=== PATIENT | male | born 1945 | race Caucasian/White ===

== ENCOUNTER → 2022-04-23 | Outpatient (CLI) | payer MEDICARE ==
[~2022-04-23] MED LIST: TIXAGEVIMAB/CILGAVIMAB (EUA) 300 MG/3 ML COMBO.PKG IM NR; TIXAGEVIMAB/CILGAVIMAB (EUA) 300 MG/3 ML COMBO.PKG IM ONE
[2022-04-23 13:27] VITALS: BP 142/62; PULSE 64; RESP 18; TEMP 98.4
== END ==
LOC: PROCWHC3 13:12
PROVIDERS: ATTEND Internal Medicine Hematology & Oncology
DX: Z23 Encounter for immunization (principal); Z92.21 Personal history of antineoplastic chemotherapy
CPT/HCPCS: Q0220; M0220

== ENCOUNTER → 2022-08-18 | Outpatient (CLI) | payer MEDICARE ==
[2022-08-18 11:20] VITALS: BP 134/63; PULSE 69; RESP 18; TEMP 97.8
--- NOTE | 2022-08-18 14:53 | P.PAINPG ---
PQRS Measure Charge Sheet Comment: A 77 yr old male with a history of severe and chronic headache and neck pain secondary to cervical degenerative disc diseases and cervicogenic headache/ occipital neuralgia presents today for evaluation s/p L ERIKA injection. Pt states he experienced 30% pain relief x/p procedure. Pain level is currently at 8/10 in intensity, constant, localized in mid L cervical spine, deep/burning in character w shooting towards L eye. Pain is provoked by any lateral flexion or flexion. Pain is alleviated with PT while inpatient in Jun 2022, acupuncture x 2, heat, ice, medications (OTC meds), topicals, repositioning and rest. Interventional pain procedures completed include L ERIKA injection Patient is currently on OTC meds Patient denies any side effects of the medication(s), denies excessive drowsiness or sleepiness, denies suicidal ideation and reports that the current pain medication is helping to control the pain and improve activities of daily living. Patient denies any motor or sensory deficits. Patient denies any fever or night sweats, denies any change in the bowel movements or urination. Physical Examination: -Constitutional: Cooperative. Not in acute distress . - Neurologic: Cranial nerve II to XII intact. No focal neurological deficits. - Psychatric: Alert & oriented x 3. Matching mood & appropriate affect. Judgment and insight intact. - Musculoskeletal: Cervical spine: Muscle bulk/ tone/ strength in the bilateral upper extremities normal Vertebral body tenderness to palpation over Spurling test positive Distraction test positive Facet loading test positive w accompanying paraspinal TTP over L C2-C3, C3-C4 Thoracic spine Muscle bulk / tone/ strength in the bilateral paraspinal muscles normal Vertebral body tender to palpation over Facet loading test positive Lumbar spine: Motor bulk/ tone/ strength lower extremities , thigh and legs : 5/5 Deep tendon reflexes : Normal Knee Jerk. Normal Ankle Jerk . Vertebral body tenderness to palpation over Lumbar Facet Loading Test positive Straight Leg Raise: positive at 30 degrees right side/ left side Gaenslen's Test positive Sacral spine : Severe tenderness over the Sacroiliac joint: right side / left side Range of motion: Flexion of the lumbar spine <60 degrees Range of motion: Extension of the lumbar spine <20 degrees Gaenslen's Test positive Adan's Test positive Jeni test: positive right side / left side Thigh Thrust Test Sacral Thrust Test Assessment and plan: Chronic neck pain and headaches secondary to cervicogenic headache, occipital neuralgia Recommendation of L C2-C3, C3-C4 injection #1. May need a series, up until RFA, for optimal pain relief. Risks, benefits of procedure discussed and pt verbalized understanding. Admits to anticoagulant use or medical history of diabetes. Protocol for discontinuation/ continuation of meds buster procedure discussed. All patient questions answered I have spent less than 30 minutes on patient care today. Dr Carirngton was available by phone for the evaluation of this patient. The time was used to review the medical records including relevant urine studies and Prescription history (MAPs), review of the available imaging, evaluation and examination of the patient, coordination of care with the medical staff and if applicable referring physicians, as well as creation of the medical record Home Medications: Ambulatory Orders Aspirin [Children's Aspirin] 81 mg PO DAILY 04/23/22 DULoxetine HCL [Cymbalta] 30 mg PO DAILY 04/23/22 Levothyroxine Sodium [Synthroid] 50 mcg PO DAILY 04/23/22 allopurinoL [Zyloprim] 300 mg PO DAILY 04/23/22 Acyclovir [Zovirax] 400 mg PO BID 07/06/22 Tamsulosin HCl [Flomax] 0.8 mg PO HS 07/06/22 Isosorbide Mononitrate ER [Imdur] 30 mg PO DAILY 30 Days #30 tab 07/10/22 Pregabalin [Lyrica] 75 mg PO TID 3 Days #9 cap 07/10/22 Controlled Substance Measures - Controlled Substance Measures Is patient prescribed a controlled substance at discharge?: No
== END ==
LOC: PNWHC3 10:55
PROVIDERS: ATTEND Specialist
DX: M54.81 Occipital neuralgia (principal); G44.86 Cervicogenic headache; G89.29 Other chronic pain
CPT/HCPCS: 99211

== ENCOUNTER → 2022-08-20 | Outpatient (CLI) | payer MEDICARE ==
--- NOTE | 2022-08-21 04:44 | MR ---
EXAMINATION TYPE: MR cervical spine wo con DATE OF EXAM: 08/20/2022 COMPARISON: None HISTORY: Neck pain and headaches for 5 months since having shingles Multiplanar multiecho imaging of the cervical spine performed with no contrast. Normal alignment. There is mild narrowing of disc spaces at C5-6 and C6-7. Cervical spinal cord has n ormal signal pattern. No edema. Brainstem is intact. There is mild cervical hypertrophic facet arthro keanu. No paraspinal mass. No evidence of spinal stenosis. There is right-sided C5-6 uncovertebral sp urring and neural foraminal impingement. IMPRESSION: Mild spondylotic changes. Right sided C5-6 neural foraminal impingement due to disc bulging and uncov ertebral spurring. No spinal stenosis.
== END | disposition home or self-care (01) ==
LOC: RADMRIMAIN 18:05
PROVIDERS: ATTEND Specialist
DX: M50.323 Other cervical disc degeneration at C6-C7 level (principal); M47.812 Spondylosis without myelopathy or radiculopathy, cervical region
CPT/HCPCS: 72141

== ENCOUNTER 2022-09-24 06:46 | Day surgery (SDC) | payer MEDICARE ==
[2022-09-22 09:25] VITALS: BMI 33.9
[2022-09-24 07:13] VITALS: TEMP 97.4
[2022-09-24] MEDS ORDERED: LACTATED RINGERS 1,000 ML IV ONE (07:30)
[2022-09-24] MEDS ORDERED: ROPIVACAINE 5 MG/ML 20 ML AMPULE ONE (07:48)
[2022-09-24] MEDS ORDERED: methylPREDNISolone ACETATE 40 MG/ML 1 ML VIAL ONE (07:48)
[2022-09-24] MEDS ORDERED: MIDAZOLAM 2 MG/2 ML VIAL ONE (07:49)
[2022-09-24] MEDS ORDERED: fentaNYL (PF) 50 MCG/ML 2 ML AMP ONE (07:49)
--- NOTE | 2022-09-24 08:09 | P.PCN ---
Date of Procedure: 09/24/22 Procedure(s) Performed: PREOPERATIVE DIAGNOSIS: 1-Cervical Spondylosis with Facet Arthropathy.without myelopathy. 2-cervical degenerative disc disease POSTOPERATIVE DIAGNOSIS: Same as preoperative diagnosis. PROCEDURES: Diagnostic Left C2 ,C3, C4 medial branch blocks, with fluoroscopic guidance (fluoroscopy images available in radiology department ) ( to target the facet joint at Left C2-3 ,C3-4 ) ANESTHESIA: Monitored anesthesia care as per anesthesia department . EBL: Minimal PROCEDURE INDICATION: The patient with neck pain secondary to cervical arthropathy unresponsive to more conservative treatments. PROCEDURE DESCRIPTION / TECHNIQUE: The patient was seen and identified in the preoperative area. Risks, benefits, complications, and alternatives were discussed with the patient, the patient agreed to proceed with the procedure and signed the consent. IV was started. Vital signs remained stable throughout the procedure. Patient was taken to the OR and time out was completed. The patient was placed in the Lateral position on the procedure table( left side up ). . The cervical area was prepped and draped in the usual sterile fashion. Critical pause was taken. Vital signs were closely monitored during the procedure. Conscious sedation was used during the procedure to decrease patients anxiety. Using cross-table lateral fluoroscopy, the centroid of the trapezoid of Left C2 ,C3, C4 , was identified, marked, and localized with 1% lidocaine 1 ml at each level for skin and Sub Q infiltrations . Subsequently, a 22 G 3 spinal needle was advanced guided by fluoroscopy to the centroid of the trapezoid of Left C2 , C3, C4 , Colton tip position was confirmed at the centroid of the trapezoids of Left C2 ,C3 , C4 with anteroposterior fluoroscopy. Subsequently, 1.5 ml of preservative-free Ropivacaine 0.5% mixed with Depo-Medrol 20 mg and half ml of the mixture was injected after negative aspiration for blood and CSF. Colton was then removed intact . COMPLICATIONS: No acute complications. DISPOSITION / PLANS: The patient was placed in a supine position and transferred to the recovery area in a stable condition for observation and was discharged from the recovery room after meeting discharge criteria. Home discharge instructions given to the patient by the staff. The patient was reexamined prior to discharge. The patient will schedule a follow up in the clinic in 2-4 weeks.
[2022-09-24] MEDS ORDERED: IV FLUID CONTINUATION 800 ML IV ONE (08:11)
[2022-09-24] MEDS ORDERED: LIDOCAINE 1% (10MG/ML) FOR IV START INTRADERMA PRN (08:29)
[2022-09-24] MEDS ORDERED: LACTATED RINGERS 1,000 ML IV SCH (08:29)
--- NOTE | 2022-09-24 08:30 | FL ---
Intraoperative/procedural fluoroscopic services were provided. Total fluoroscopy time is 18 seconds w ith a total of 2 submitted images to PACS. Please see the operative/procedural note for further detai ls.
[2022-09-24 08:36] VITALS: BP 130/59; PULSE 55; RESP 16
== END 2022-09-24 09:02 | disposition home or self-care (01) ==
LOC: ORPAIN 06:46
PROVIDERS: ATTEND Specialist
DX: M47.812 Spondylosis without myelopathy or radiculopathy, cervical region (principal); M50.31 Other cervical disc degeneration, high cervical region; E07.9 Disorder of thyroid, unspecified; F41.9 Anxiety disorder, unspecified; F32.A Depression, unspecified; M10.9 Gout, unspecified; K85.90 Acute pancreatitis without necrosis or infection, unspecified; Z86.718 Personal history of other venous thrombosis and embolism; Z98.84 Bariatric surgery status; Z98.890 Other specified postprocedural states; Z90.89 Acquired absence of other organs; Z79.899 Other long term (current) drug therapy; Z79.890 Hormone replacement therapy
CPT/HCPCS: 64490; 64491; J2250; J1030; J3010; J2795

== ENCOUNTER → 2022-10-04 | Outpatient (CLI) | payer MEDICARE ==
[2022-10-04 08:46] VITALS: BP 133/57; PULSE 59; RESP 18; TEMP 98.1
--- NOTE | 2022-10-04 14:38 | P.PAINPG ---
PQRS Measure Charge Sheet Comment: A 77 yr old male w at side with a history of severe and chronic neck pain secondary to Shingles, cervical DDD and spondylosis with facet arthropathy without myelopathy presents today for evaluation s/p L MBB C2-C3, C3-C4. Pt states he experienced 25 % pain relief x 4 hrs s/p procedure. Pain level is c urrently at 8 /10 in intensity, constant, localized in the L cervical spine, burning in character w shooting towards the L neck and LUE. Pain is provoked by PT. Pain is alleviated with acupuncture in 2021, medications without relief, topicals without relief, +THC edibles, repositioning and rest. Interventional pain procedures completed include L MBB C2-C3, C3-C4 Patient is currently on various meds without relief Patient denies any side effects of the medication(s), denies excessive drowsiness or sleepiness, denies suicidal ideation and reports that the current pain medication is helping to control the pain and improve activities of daily living. Patient denies any motor or sensory deficits. Patient denies any fever or night sweats, denies any change in the bowel movements or urination. Physical Examination: -Constitutional: Cooperative. Not in acute distress . - Neurologic: Cranial nerve II to XII intact. No focal neurological deficits. - Psychatric: Alert & oriented x 3. Matching mood & appropriate affect. Judgment and insight intact. - Musculoskeletal: Cervical spine: TTP over L anteriolateral neck, jaw Muscle bulk/ tone/ strength in the bilateral upper extremities normal Vertebral body tenderness to palpation over Spurling test positive Distraction test positive Facet loading test positive Thoracic spine Muscle bulk / tone/ strength in the bilateral paraspinal muscles normal Vertebral body tender to palpation over Facet loading test positive Lumbar spine: Motor bulk/ tone/ strength lower extremities , thigh and legs : 5/5 Deep tendon reflexes : Normal Knee Jerk. Normal Ankle Jerk . Vertebral body tenderness to palpation over Lumbar Facet Loading Test positive Straight Leg Raise: positive at 30 degrees right side/ left side Gaenslen's Test positive Sacral spine : Severe tenderness over the Sacroiliac joint: right side / left side Range of motion: Flexion of the lumbar spine <60 degrees Range of motion: Extension of the lumbar spine <20 degrees Gaenslen's Test positive Jeni test: positive right side / left side Thigh Thrust Test Sacral Thrust Test Assessment and plan: Chronic BRAUN pain secondary to Cervicogenic BRAUN, cervical degenerative disc disease, spondylosis with facet arthropathy without myelopathy, Shingles Recommendation of Jeffery GAR To schedule w Dr Rodríguez. Risks, benefits of procedure discussed and pt verbalized understanding. Admits anticoagulant use or medical history of diabetes. Protocol for discontinuation / continuation of medications buster procedure discussed. All patient questions answered MAPS reviewed and it was appropriate. Prescription refill for I have spent less than 30 minutes on patient care today. Dr Carrington was available by phone for the evaluation of this patient. The time was used to review the medical records including relevant urine studies and Prescription history (MAPs), review of the available imaging, evaluation and examination of the patient, coordination of care with the medical staff and if applicable referring physicians, as well as creation of the medical record - Pain Location Left Neck Non-Pharmacological Interventions: Home Exercise, Inactivity, Position/Reposition, Relaxation Technique, Stretching Pharmacological Interventions: Block, PRN Medication, Scheduled Medication, Topical Medication PQRS Narrative: Hx Alcohol Use (MH) No Home Medications: Ambulatory Orders Aspirin [Children's Aspirin] 81 mg PO DAILY 04/23/22 DULoxetine HCL [Cymbalta] 30 mg PO DAILY 04/23/22 Levothyroxine Sodium [Synthroid] 50 mcg PO DAILY 04/23/22 allopurinoL [Zyloprim] 300 mg PO DAILY 04/23/22 Acyclovir [Zovirax] 400 mg PO BID 07/06/22 Tamsulosin HCl [Flomax] 0.8 mg PO HS 07/06/22 Ascorbic Acid [Vitamin C] 1,000 mg PO DAILY 09/22/22 Bosutinib [Bosulif] 300 mg PO PC-SUPPER 09/22/22 Cholecalciferol [Vitamin D3 (25 Mcg = 1000 Iu)] 50 mcg PO DAILY 09/22/22 Controlled Substance Measures - Controlled Substance Measures Is patient prescribed a controlled substance at discharge?: No
== END ==
LOC: PNWHC3 08:05
PROVIDERS: ATTEND Specialist
DX: M47.812 Spondylosis without myelopathy or radiculopathy, cervical region (principal); M54.81 Occipital neuralgia; M50.30 Other cervical disc degeneration, unspecified cervical region; B02.9 Zoster without complications; Z79.01 Long term (current) use of anticoagulants; E11.9 Type 2 diabetes mellitus without complications; Z79.4 Long term (current) use of insulin
CPT/HCPCS: 99211

== ENCOUNTER 2022-11-09 10:32 | Day surgery (SDC) | payer MEDICARE ==
[2022-11-03 09:25] VITALS: BMI 34.0
[~2022-11-09 10:32] MED LIST changes: +LIDOCAINE 1% (10MG/ML) FOR IV START INTRADERMA PRN; -TIXAGEVIMAB/CILGAVIMAB (EUA) 300 MG/3 ML COMBO.PKG IM NR; -TIXAGEVIMAB/CILGAVIMAB (EUA) 300 MG/3 ML COMBO.PKG IM ONE
[2022-11-09] MEDS: LACTATED RINGERS 1,000 ML IV SCH ×2 (11:06→11:32)
[2022-11-09 11:22] VITALS: TEMP 97.6
[2022-11-09] MEDS ORDERED: DEXAMETHASONE SOD PHOSPHATE 10 MG/ML 1 ML VIAL ONE (11:35)
[2022-11-09] MEDS ORDERED: IOPAMIDOL M200 10 ML VIAL ONE (11:35)
[2022-11-09] MEDS ORDERED: fentaNYL (PF) 50 MCG/ML 2 ML AMP ONE (11:35)
[2022-11-09] MEDS ORDERED: MIDAZOLAM 2 MG/2 ML VIAL ONE (11:35)
[2022-11-09] MEDS ORDERED: IV FLUID CONTINUATION 600 ML IV ONE (11:58)
--- NOTE | 2022-11-09 12:01 | FL ---
Intraoperative/procedural fluoroscopic services were provided for trigeminal nerve block. Total fluor oscopy time is seconds with a total of 1 submitted image to PACS. Please see the operative note for f urther details.
--- NOTE | 2022-11-09 12:04 | P.PCN ---
Date of Procedure: 11/09/22 Procedure(s) Performed: Procedure= left trigeminal nerve steroid injection under fluoroscopy guidance (fluoroscopy image stored on file in the radiology Department ) Preoperative diagnosis= 1-left trigeminal neuralgia 2-left occipital neuralgia 3-cervical spondylosis with cervical facet arthropathy Postoperative diagnosis=Same as preop Diagnosis . Complication = none Condition= stable Anesthesia= moderate sedation with intravenous Versed 2 mg , and fentanyl 100 micrograms . Sedation start time: 1139 Sedation end time : 1152 Indication for the procedure= patient complaining of severe neck pain and radiating to the left mandibular area, seated with some headache, patient had left side occipital nerve block and left medial branch blocks C2 3 C3 4, patient had minimal benefit from it he continued to have severe neck pain and headache and had severe left-sided mandibular pain, some left facial pain, examination was negative for any focal neurological deficit, H and had a history of shingles on the left side of the face and eye , with radiation to the left side of the face and after that he had numbness tingling and pain in the left side of the cervical spine and lower part of the face, patient he today to have left-sided trigeminal nerve block, or seizure risk and benefit and alternatives discussed with the patient he agreed with the preceding Description of the procedure= procedure risk and benefits discussed with the patient, including but not limited, risk of infection and bleeding, and ALLERGIC reaction to the medication and not complete pain relief and patient agreed with the preceding patient taken to the operating room, placed in supine position or standard monitors applied to the patient then after induction of anesthesia left side face prepped with chlorhexidine 3 times , they local infiltration of the skin and subcutaneous tissue with lidocaine 1% then 22-gauge Quincke Needle advanced slowly under fluoroscopy and placed in the left forearm OVAL , then after needle placement confirmed with AP and lateral view, Isovue 200 one mL injected to show appropriate spread , and after negative aspiration for heme or cerebrospinal fluid, 20 mg of dexamethasone injected slowly after negative aspiration , patient tolerated the procedure well without any complications .
[2022-11-09 12:22] VITALS: BP 154/79; PULSE 64; RESP 18
== END 2022-11-09 12:45 | disposition home or self-care (01) ==
LOC: ORPAIN 10:32
PROVIDERS: ATTEND Specialist
DX: G50.0 Trigeminal neuralgia (principal); M54.81 Occipital neuralgia; M47.812 Spondylosis without myelopathy or radiculopathy, cervical region
CPT/HCPCS: 99152; 64400; 64600; J2250; J1100; J3010; Q9966; 64405

== ENCOUNTER → 2022-11-17 | Outpatient (CLI) | payer MEDICARE | LOC: PNWHC3 07:29 | PROVIDERS: ATTEND Anesthesiology | DX: Z53.9 Procedure and treatment not carried out, unspecified reason (principal) ==